=== PATIENT | male | born 1995 | race American Indian/Alaskan Native ===

== ENCOUNTER 2019-04-16 15:46 | Emergency (ER) | payer OTHER ==
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
[2019-04-16] MEDS ORDERED: SUBLIMAZE IV ONE (16:46)
[2019-04-16] MEDS ORDERED: ZOFRAN IV ONE (16:46)
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
[2019-04-16] MEDS ORDERED: CLEOCIN 900 MG/50 mL 900 MG/50 ML BAG IV ONE (17:06)
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
[2019-04-16 17:51] VITALS: BP 125/83
[2019-04-16] MEDS ORDERED: NACL 0.9% IR ONE (17:51)
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
== END 2019-04-16 18:48 | disposition home or self-care (01) ==
LOC: ED 15:46
DX: S81.011A Laceration without foreign body, right knee, initial encounter (principal); G93.5 Compression of brain; V23.4XXA Motorcycle driver injured in collision with car, pick-up truck or van in traffic accident, initial encounter; Y93.89 Activity, other specified; Y92.410 Unspecified street and highway as the place of occurrence of the external cause; Y99.8 Other external cause status
CPT/HCPCS: 29505; 70450; 72170; 73552; 73562; 73590; 96365; 96375; 99284; J2405; J3010